=== PATIENT | female | born 1965 | race Caucasian/White ===

== ENCOUNTER 2017-06-03 14:47 | Emergency (ER) | payer OTHER ==
--- OUTSIDE RECORDS SUMMARY | 2017-06-03 14:56 | XMS REPORT ---
:1965 External Reference #:[id number] Author Organization [facility] Address [address] [address] Phone [phone] Care Team Providers Name Role Phone Anjum Miller III, MD Primary Care Physician Unavailable Payers Type Date Identification Numbers Payment Provider Subscriber Commercial Expires: Policy Number: [id number] [employer] Dirk Burns 2010 Group Number: [id number] [address] PayID: [id number] [place] [address] Commercial Effective: 2010 Policy Number: [id number] [employer] Dirk Burns PayID: [id number] [address] [place] [address] Medigap Part B Effective: Policy Number: [employer] Dirk Burns 2010 [id number] Expires: 2010 Group Number: [id number] [address] PayID: [id number] [place] [address] Problems Date Description Provider Status Onset: 08/23/2011 Pure hypercholesterolemia Anjum Miller M.D. Active Onset: 08/23/2011 Allergic rhinitis Anjum Miller M.D. Active Onset: 07/02/2016 Gastroesophageal reflux disease Anjum Miller M.D. 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 Multivitamins Active Tablets 90tab 1 PO qd (on s occassion) Zyrtec Active 10mg 1 qd Tums Smoothies Active Chewtabs 750mg 1 chewtab prn Acetaminophen Active Capsules 500mg 100ca take 1 ps tablets three times daily as needed Ibuprofen Active Tablets 200mg as needed Proair HFA Active Aerosol 108(90Bas 2 puffs by e) mouth every mcg/Act 4 hours as needed Dymista Active Suspension 137-50mcg 69gm 1 spray Anjum EUmesh /0000 /Act farrah Martines M.D. daily Famotidine Active Tablets 10mg take one tablet by mouthonce or twice a day Guaifenesin Active Tablets 400mg Augmentin 06/07 Hx Tablets 875-125mg 1 tablet by mouth q12 - hours for 06/26 10 days Ibuprofen 01/03 Hx Capsules 200mg prn Anjum Lucio /2010 Javon Miller M.D. 12/30 PT Under Eval 07/04 Hx Please put Anjum Lucio For A Back her Angela Problem - дмитрий Cedeño 04/25 on pending resolution of this issue. Cyclobenzaprine 04/28 Hx Tablets 10mg 30tab 1 po tid Anjum Lucio s prJavon Love M.D. 07/04 Physical Therapy 11/22 Hx 20uni pt Anjum Lucio /2008 ts evaluation Alva Miller 04/25 treatment for low back pain Physical Therapy 11/22 Hx 20uni pt 724.2 Anjum E. ts evaluation Alva Miller 04/25 treatment for low back pain Claritin 09/09 Hx Capsules 10mg 30cap 1 tablet Anjum Lucio s daily prJavon Love M.D. 07/04 Calcium 02/11 Hx Tablets 600mg 90tab 1 PO qd Anjum Lucio Javon Ocampo M.D. 06/22 Ibuprofen Hx Tablets 200mg 1 PO prn Jenn, / MD Taj - 06/22 Singulair Hx Tablets 10mg 90tab 1 PO qd Jenn, minerva Vang MD - 02/11 Maalox Hx Chewtabs 600mg 240un 1 tab po q Unknown /0000 its 6h - 08/22 Nystatin/Triamci Hx Cream [id number]. Jump, nolone /0000 1Unit/GM- Emma, - % CERT OCCUPATIONAL THERAPY ASST 06/[address] 40mg 90cap 1 po qd Anjum E. / Javon Ocampo M.D. 12/[address] 20mg 90cap 1 po bid Unknown /0000 s - 11/14 Nasonex Hx Suspension 50mcg/Act 2 sprays to Unknown /0000 each - nostril 05/30 twice daily /2016 Jublia Hx Solution 10% topical Unknown /0000 every day x - 48 wks 11/14 Zithromax Z-Alden Hx Tablets 250mg 18tab two by Unknown /0000 s mouth - initially 05/30 then one by mouth daily Immunizations CPT Code Status Date Vaccine Lot # [id number] Given 03/11/2017 Influenza Virus Vaccine, Quadrivalent, Split, [id number] Preservative Free 84164 Given 03/28/2016 Influenza Virus Vaccine, Quadrivalent, Split [id number] [place] [address] Given 12/14/2014 Influenza Virus Vaccine, Quadrivalent, Split, [id number] Preservative Free 83586 Given 01/28/2014 Flu Vaccine Split Virus Preservative Free For [id number] Indiv 3Yr Older 34233 Given 12/30/2012 Flu Vaccine Split Virus Preservative Free For [id number] Indiv 3Yr Older [id number] Given 11/27/2011 Fluzone Vaccine 28097 Given 01/01/2011 Influenza Virus 3Yrs & Over [id number] 95219 Given 01/13/2010 Influenza Virus 3Yrs & Over [id number] 63733 Given 01/16/2008 Tdap - Tetanus/Diptheria/Acellular Pertussis 86939 Given 01/16/2008 Influenza Virus 3Yrs & Over 20741 Given 02/11/2007 Influenza Virus 3Yrs & Over 67602 Given 02/11/2007 Influenza Virus 3Yrs & Over [id number] Vital Signs Date Vital Result Comment 05/27/2017 Weight 161.00 lb Heart Rate 74 /min BP Systolic Sitting 122 mmHg BP Diastolic Sitting 74 mmHg Body Temperature 97.7 F O2 % BldC Oximetry 97 % 04/19/2017 Height 66 inches 5'6" Weight 158.00 lb Heart Rate 60 /min BP Systolic 122 mmHg BP Diastolic 72 mmHg Respiratory Rate 16 /min Body Temperature 97.7 F BMI (Body Mass Index) 25.5 kg/m2 07/06/2016 Height 66 inches 5'6" Weight 155.00 lb Heart Rate 78 /min BP Systolic 118 mmHg BP Diastolic 82 mmHg Respiratory Rate 16 /min Body Temperature 98.3 F BMI (Body Mass Index) 25.0 kg/m2 07/02/2016 Height 66 inches 5'6" Weight 155.25 lb Heart Rate 71 /min BP Systolic 120 mmHg BP Diastolic 70 mmHg Body Temperature 98.0 F O2 % BldC Oximetry 98 % BMI (Body Mass Index) 25.1 kg/m2 05/30/2016 Weight 156.00 lb Heart Rate 74 /min BP Systolic Sitting 122 mmHg BP Diastolic Sitting 84 mmHg Respiratory Rate 15 /min O2 % BldC Oximetry 98 % 05/23/2016 Weight 156.25 lb Heart Rate 86 /min BP Systolic 128 mmHg BP Diastolic 80 mmHg Body Temperature 98.8 F O2 % BldC Oximetry 98 % 11/15/2015 Weight 152.00 lb Heart Rate 78 /min BP Systolic Sitting 120 mmHg BP Diastolic Sitting 72 mmHg Body Temperature 98.0 F O2 % BldC Oximetry 98 % 06/27/2015 Height 66 inches 5'6" Weight 155.00 lb Heart Rate 81 /min BP Systolic Sitting 112 mmHg BP Diastolic Sitting 78 mmHg Body Temperature 97.6 F O2 % BldC Oximetry 98 % BMI (Body Mass Index) 25.0 kg/m2 06/09/2015 Weight 154.00 lb Heart Rate 77 /min BP Systolic Sitting 122 mmHg BP Diastolic Sitting 86 mmHg Body Temperature 98.2 F O2 % BldC Oximetry 98 % 07/05/2014 Height 66 inches 5'6" Weight 146.00 lb Heart Rate 74 /min BP Systolic Sitting 118 mmHg BP Diastolic Sitting 70 mmHg Body Temperature 98.8 F O2 % BldC Oximetry 98 % BMI (Body Mass Index) 23.6 kg/m2 04/08/2014 Height 66 inches 5'6" Weight 151.25 lb Heart Rate 92 /min BP Systolic Sitting 122 mmHg BP Diastolic Sitting 78 mmHg Body Temperature 98.3 F O2 % BldC Oximetry 98 % BMI (Body Mass Index) 24.4 kg/m2 12/30/2012 Height 66 inches 5'6" Weight 153.00 lb Heart Rate 88 /min BP Systolic Sitting 122 mmHg BP Diastolic Sitting 72 mmHg BMI (Body Mass Index) 24.7 kg/m2 08/23/2011 Height 65.75 inches 5'5.75" Weight 142.75 lb Heart Rate 76 /min BP Systolic Sitting 102 mmHg BP Diastolic Sitting 66 mmHg BMI (Body Mass Index) 23.2 kg/m2 06/04/2011 Height 65.75 inches 5'5.75" Weight 142.00 lb Heart Rate 68 /min BP Systolic Sitting 120 mmHg BP Diastolic Sitting 72 mmHg BMI (Body Mass Index) 23.1 kg/m2 01/03/2011 Height 65.75 inches 5'5.75" Weight 144.75 lb Heart Rate 68 /min BP Systolic Sitting 124 mmHg BP Diastolic Sitting 68 mmHg BMI (Body Mass Index) 23.5 kg/m2 06/22/2010 Height 65.5 inches 5'5.50" Weight 148.00 lb Heart Rate 86 /min BP Systolic Sitting 130 mmHg BP Diastolic Sitting 72 mmHg BMI (Body Mass Index) 24.3 kg/m2 05/16/2010 BP Systolic 112 mmHg BP Diastolic 70 mmHg 07/04/2009 Weight 142.00 lb Heart Rate 78 /min BP Systolic Sitting 120 mmHg BP Diastolic Sitting 78 mmHg 04/28/2009 Heart Rate 76 /min BP Systolic Sitting 126 mmHg BP Diastolic Sitting 70 mmHg 11/22/2008 Weight 139.00 lb Heart Rate 72 /min BP Systolic Sitting 124 mmHg BP Diastolic Sitting 74 mmHg 09/09/2008 Height 65.5 inches 5'5.50" Weight 139.00 lb Heart Rate 80 /min BP Systolic Sitting 120 mmHg BP Diastolic Sitting 68 mmHg BMI (Body Mass Index) 22.8 kg/m2 01/16/2008 Height 66 inches 5'6" Weight 139.00 lb BP Systolic Sitting 120 mmHg BP Diastolic Sitting 80 mmHg BMI (Body Mass Index) 22.4 kg/m2 02/11/2007 Height 66 inches 5'6" Weight 134.00 lb Heart Rate 60 /min BP Systolic Sitting 104 mmHg BP Diastolic Sitting 66 mmHg BMI (Body Mass Index) 21.6 kg/m2 Results Test Date Test Result H/L Range Note CBC Auto Diff 06/21/2016 White Blood Count 7.8 10^3/uL 3.5-10.8 Red Blood Count 5.19 10^6/uL 4.0-5.4 Hemoglobin 14.4 g/dL 12.0-16.0 Hematocrit 43 % 35-47 Mean Corpuscular Volume 83 fL 80-97 Mean Corpuscular Hemoglobin 28 pg 27-31 Mean Corpuscular HGB Conc 34 g/dL 31-36 Red Cell Distribution Width 14 % 10.5-15 Platelet Count 241 10^3/uL 150-450 Mean Platelet Volume 9 um3 7.4-10.4 Abs Neutrophils 4.1 10^3/uL 1.5-7.7 Abs Lymphocytes 2.5 10^3/uL 1.0-4.8 Abs Monocytes 0.8 10^3/uL 0-0.8 Abs Eosinophils 0.4 10^3/uL 0-0.6 Abs Basophils 0.1 10^3/uL 0-0.2 Abs Nucleated RBC 0.01 10^3/uL Granulocyte % 52.2 % 38-83 Lymphocyte % 31.7 % 25-47 Monocyte % 10.6 % High 1-9 Eosinophil % 4.6 % 0-6 Basophil % 0.9 % 0-2 Nucleated Red Blood Cells % 0.1 Lipid Profile (Trig/Chol/HDL) 06/21/2016 Triglycerides 89 mg/dL 1 Cholesterol 241 mg/dL 2 HDL Cholesterol 57.7 mg/dL 3 LDL Cholesterol 166 mg/dL 4 Laboratory test finding 06/21/2016 Glucose 89 mg/dL 70-100 5 Laboratory test finding 04/24/2016 Surgical Pathology SEE RESULT BELOW 6, 7 Lipid Profile 04/01/2014 Triglycerides 121 mg/dL 8, 9 (Trig/Chol/HDL) Cholesterol 214 mg/dL 8, 10 HDL Cholesterol 56.3 mg/dL 8, 11 LDL Cholesterol 134 mg/dL 8, 12 Laboratory test finding 04/01/2014 Glucose 94 mg/dL 70-100 8, 13 Lipid Profile (Trig/Chol/HDL) 12/23/2012 Triglycerides 131 mg/dL 40-200 Cholesterol 213 mg/dL High Less than 200 HDL Cholesterol 49 mg/dL 40-60 14 Cholesterol/HDL Ratio 4.4 Average 1-4.44 LDL Cholesterol 137.8 High Less Than 100 15 Laboratory test finding 12/23/2012 Glucose 83 mg/dL 70-100 16 Human Papilloma Virus 12/05/2012 Human Papillomavirus See Comment 17 Source Human Papillomavirus High Risk Negative Negative 18 Surgical Pathology 08/02/2011 Surgical Pathology <SEE 19 NOTE> Clotest 08/02/2011 M <SEE 20 NOTE> Lipid Profile 06/19/2011 Triglyceride 78 mg/dL 40-200 (Trig/Chol/HDL) Cholesterol 201 mg/dL High Less Than 200 21 High Density Lipoprotein 52 mg/dL 40-60 22 Cholesterol/HDL Ratio 3.87 AVERAGE 1-4.44 Low Density Lipoprotein 133 mg/dL High Less Than 100 23 Laboratory test finding 06/19/2011 Glucose 87 mg/dL 70-100 CBC Auto Diff 06/19/2011 White Blood Count 6.6 CUMM 4.8-10.8 Red Cell Count 4.54 CUMM 4.2-5.4 Hemoglobin 13.2 g/dL 12.0-16.0 Hematocrit 39 % 35-47 Mean Corpuscular Volume 85 um3 79-97 Mean Corpuscular Hemoglob 29 pg 27-31 Mean Corpuscular HGB Cone 34 g/dL 32-36 Redcell Distribution WDTH 12 % 10.5-15 Platelet Count 218 CUMM 150-450 Mean Platelet Volume 9.4 um3 7.4-10.4 Gran % 51.2 % 38-83 Lymph % 33.5 % 25-47 Mononuclear % 9.1 % High 1-9 Eosinophil % 5.7 % 0-6 Basophil % 0.5 % 0-2 Abs Lymphs 2.2 1.0-4.8 Abs Mononuclear 0.6 0-0.8 Absolute Neutrophil Count 3.4 1.5-7.7 Abs Eosinophils 0.4 0-0.6 Abs Basophils 0 0-0.2 Comp Metabolic Panel 06/19/2011 Sodium 137 mmol/L 135-145 Potassium 4.3 mmol/L 3.5-5.0 Chloride 105 mmol/L 101-111 Co2 (Carbon Dioxide) 27.0 mmol/L 22-32 Anion Gap 5.0 mmol/L 2-11 24 BUN 15 mg/dL 6-24 Creatinine 0.9 mg/dL 0.50-1.40 One Over Creatinine 1.11 BUN/Creatinine Ratio 16.7 8-20 Calcium 9.5 mg/dL 8.1-9.9 Total Protein 7.1 GM/DL 6.2-8.1 Albumin 4.4 GM/DL 3.6-5.4 Globulin 2.7 GM/DL 2-4 Albumin/Globulin Ratio 1.6 1-3 Bilirubin Total 0.8 mg/dL 0.4-1.5 25 Alkaline Phosphatase 39 U/L 30-110 Alt (SGPT) 15 U/L 14-54 Ast (Sgot) 19 U/L 12-42 eGFR Non- 67.4 > 60 eGFR 86.7 > 60 26 Laboratory test finding 06/19/2011 Amylase 71 U/L 20-120 27 Lipase 33 U/L 22-51 Urinalysis W/Microscopic 06/19/2011 Ua Color YELLOW Yellow Appearance-Urine CLEAR Clear Specific [place]-Ur 1.010 1.010-1.030 Esterase-Urine NEGATIVE Negative Nitrite NEGATIVE Negative Zmstodlrmgaj-Ix-MKR NEGATIVE Negative Protein-Urine NEGATIVE Negative PH-Urine 5.5 5-9 Blood-Urine NEGATIVE Negative Ketones-Urine NEGATIVE Negative Bilirubin-Ur NEGATIVE Negative Glucose-Urine NEGATIVE Negative RBC-Urine NONE SEEN 0-2 Epith Cells-Ur RARE None Laboratory test finding 05/16/2010 Glucose 90 mg/dL 70-100 Lipid Profile (Trig/Chol/HDL) 05/16/2010 Triglyceride 92 mg/dL 40-200 Cholesterol 227 mg/dL High Less Than 200 28 High Density Lipoprotein 57 mg/dL 40-60 29 Low Density Lipoprotein 152 mg/dL High Less Than 100 30 Cholesterol/HDL Ratio 3.98 AVERAGE 1-4.44 Laboratory test finding 08/31/2008 TSH 1.74 MIU/ML 0.34-5.60 Lipid Profile (Trig/Chol/HDL) 08/31/2008 Triglyceride 82 mg/dL 40-200 Cholesterol 177 mg/dL Less Than 200 31 High Density Lipoprotein 49 mg/dL 40-60 32 Cholesterol/HDL Ratio 3.61 AVERAGE 1-4.44 Low Density Lipoprotein 112 mg/dL High Less Than 100 33 Comp Metabolic Panel 08/31/2008 Sodium 137 mmol/L 135-145 Potassium 4.7 mmol/L 3.5-5.0 Chloride 106 mmol/L 101-111 Co2 (Carbon Dioxide) 27.0 mmol/L 22-32 Anion Gap 4.0 mmol/L 2-11 34 Glucose 94 mg/dL 70-100 35 BUN 17 mg/dL 6-24 Creatinine 0.84 mg/dL 0.50-1.40 One Over Creatinine 1.10 BUN/Creatinine Ratio 20.2 High 8-20 Calcium 9.5 mg/dL 8.1-9.9 36 Total Protein 7.6 GM/DL 6.2-8.1 Albumin 4.6 GM/DL 3.6-5.4 Globulin 3.0 GM/DL 2-4 Albumin/Globulin Ratio 1.5 1-3 Bilirubin Total 0.8 mg/dL 0.4-1.5 37 Alkaline Phosphatase 47 U/L 30-110 Alt (SGPT) 18 U/L 14-54 Ast (Sgot) 24 U/L 12-42 CBC With Electronic Diff 08/31/2008 White Blood Count 6.4 CUMM 4.8-10.8 Red Cell Count 4.39 CUMM 4.2-5.4 Hemoglobin 13.0 g/dL 12.0-16.0 Hematocrit 36 % 35-47 Mean Corpuscular Volume 83 um3 79-97 Mean Corpuscular Hemoglob 30 pg 27-31 Mean Corpuscular HGB Cone 36 g/dL 32-36 Redcell Distribution WDTH 13 % 10.5-15 Platelet Count 237 CUMM 150-450 Mean Platelet Volume 8.3 um3 7.4-10.4 Gran % 49.5 % 38-83 Lymph % 34.4 % 25-47 Mononuclear % 7.5 % 1-9 Eosinophil % 7.6 % High 0-6 Basophil % 1.0 % 0-2 Abs Lymphs 2.2 1.0-4.8 Abs Mononuclear 0.5 0-0.8 Absolute Neutrophil Count 3.2 1.5-7.7 Abs Eosinophils 0.5 0-0.6 Abs Basophils 0.1 0-0.2 1 Desirable <150 Borderline high 150-199 High 200-499 Very High >500 2 Desirable <200 Borderline high 200-239 High >239 3 Low <40 Desirable: 40-60 High: >60 4 Desirable: <100 mg/dL Near Optimal: 100-129 mg/dL Borderline High: 130-159 mg/dL High: 160-189 mg/dL Very High: >189 mg/dL 5 FASTING 6 [id number] SEE RESULT BELOW Name: KAVYA BURNS : [address]: Tanner Ware MD Acct: [id number] Unit: [id number] AGE: 50 Location: ENDOC Re04/24/16 SEX: F Status: DEP REF SPEC: [id number] JULITA: 04/24/16-[address]: Tanner Ware MD REQ: [id number] RECD: 04/24/16113 STATUS: CHERELLE ROGERS DR: Anjum Miller III, MD _ ORDERED: LEVEL IV COMMENTS: [id number] FINAL DIAGNOSIS Colon, at 20 cm, biopsy: -- Hyperplastic polyp. CLINICAL HISTORY No history given POST-OPERATIVE DIAGNOSIS Colonoscopy to terminal ileum - polyp at 20 cm biopsied; 10 years GROSS DESCRIPTION The specimen is received in formalin labeled, Biopsy Polyp Colon at 20 cm, and consists of a 0.6 x 0.2 x 0.1 cm edwards-pink irregular soft tissue fragment, which is submitted entirely in one cassette. Signed (signature on file) Sirisha Sanders MD 04/10 1154 END OF REPORT * ML=Testing performed at Main Lab DEPARTMENT OF PATHOLOGY, [address] [place] [address] Nikhil Salas M.D. Director [facility] # [id number] FASTING 10 HOUR 9 Desirable <150 Borderline high 150-199 High 200-499 Very High >500 10 Desirable <200 Borderline high 200-239 High >239 11 Low <40 Desirable: 40-60 High: >60 12 Desirable <100 Near Optimal 100-129 Borderline high 130-159 High 160-189 Very High >189 13 FASTING 10 HOUR 14 HDL Interpretation: Undesirable: High Risk: Less than 40 mg/dL Desirable: Low Risk: Greater than 60 mg/dL 15 LDL Interpretation: Low Risk Optimal Level: LDL Less than 100 mg/dL Near or Above Optimal: LDL 100-129 mg/dL Borderline High Risk: LDL 130-159 mg/dL High Risk: LDL 160-189 mg/dL Very High Risk: LDL Greater than 189 mg/dL 16 FASTING 10 HOUR 17 RESULT: Ectocervical/Endocervical 18 For types 16, 18, 31, 33, 35, 39, 45, 51, 52, 56, 58, 59 and 68. Test Performed by: [facility] - [address] [address] Digital Pre Press Operator: Rufino Hunter III, M.D. 19 ---- RUN DATE: 08/03/11 [facility] LIVE PAGE 1 RUN TIME: 1307 Specimen Inquiry RUN USER: INTERFACE -- Name: KAVYA BURNS Karl Status: REG REF Re08/02/11 Age/Sex: 45/F Unit#: [id number] Location: [facility] : 63 -- Specimen: [id number] SOUT Spec Date:08/02/11- Tunde Dr: Tanner martin MD Spec Type: SURGICAL P Received:08/02/11-1023 Copies to: Anjum Miller III, MD SPECIMEN 1) BIOPSY DUODENUM 2) BIOPSY ESOPHAGUS HISTORY POST-OP DIAGNOSIS: Normal exam. Biopsies. CLINICAL INFORMATION: Gastroesophageal reflux disease. GROSS DESCRIPTION 1) The specimen is received in formalin labelled Kavya Burns, Biopsy Duodenum, and consists of three fragments of yellow tissue each measuring 0.5 x 0.2 x 0.2 cm. Submitted entirely, one cassette labelled 1. 2) The specimen is received in formalin labelled Kavya Naveed Burns, Biopsy Esophagus, and consists of two fragments of white tissue each measuring 0.3 x 0.2 x 0.1 cm. Submitted entirely, one cassette labelled 2. DIAGNOSIS 1) Duodenum, biopsy: Small bowel mucosa with preserved villous architecture and no significant pathologic changes. 2) Esophagus, biopsy: Squamous mucosa with evidence of reflux disease. Signed Electronically by: JACK KO 08/03/11 1307 -- -- DEPARTMENT OF PATHOLOGY, [address] [place] [address] [facility] Permit #[id number] Nikhil Salas M.D. Director Jack Ko M.D. Restaurant District Manager tiffanie -- 20 RUN DATE: 08/03/11 [facility] NMI LIVE PAGE 1 RUN TIME: 807 Specimen Inquiry RUN USER: INTERFACE Name: KAVYA BURNS Status: REG REF Re08/02/11 Age/Sex: 45/F Unit#: [id number] Location: [facility] : 63 SPEC #: [id number] JULITA: 08/02/11 STATUS: COMP REQ #: [id number] RECD: 08/02/11-[address]: Tanner Ware MD SOURCE: CLOTEST ENTR: 08/02/[address]: Angela PEREZ MD, Anjum [facility]: ORDERED: CLOTEST ACT WKST: MISC 08/03/11 #1 Procedure Result Verified Site > CLOTEST Final ML CLOTEST NEGATIVE - [facility] Permit #[id number] [address] [place] [address] DEPARTMENT OF PATHOLOGY, [address] [place] [address] [facility] Permit #[id number] Gala Umaña M.D. Restaurant Team Member 21 CHOLESTEROL INTERPRETATION: Desirable: Less than 200 MG/DL Borderline-High Risk: 200-239 MG/DL High-Risk: 240 MG/DL and over 22 HDL INTERPRETATION: Undesirable: High Risk: Less than 40 MG/DL Desirable: Low Risk: Greater than 60 MG/DL 23 LDL INTERPRETATION: Low Risk Optimal Level: LDL Less than 100 MG/DL Near or Above Optimal: LDL 100-129 MG/DL Borderline High Risk: LDL 130-159 MG/DL High Risk: LDL 160-189 MG/DL Very High Risk: LDL Greater than 189 MG/DL 24 Anion gap measurement may be of limited value in the presence of any alkalosis, especially in a combined acid base disorder. . 25 A metabolite of Naproxen, O-desmethylnaproxen, has been shown to interfere with the Jendrassik-Kay method for measuring total bilirubin. Samples from patients who have taken Naproxen have shown spurious elevation in total bilirubin levels. 26 Because ethnic data is not always readily available, this report includes an eGFR for both -Americans and non- Americans. The National Kidney Disease Education Program (NKDEP) does not endorse the use of the MDRD equation for patients that are not between the ages of 18 and 70, are , have extremes of body size, muscle mass, or nutritional status, or are non- or non-. According to the National Kidney Foundation, irrespective of diagnosis, the stage of the disease is based on the level of kidney function: Stage Description GFR(mL/min/1.73 m(2)) 1 Kidney damage with normal or decreased GFR 90 2 Kidney damage with mild decrease in GFR 60-89 3 Moderate decrease in GFR 30-59 4 Severe decrease in GFR 15-29 5 Kidney failure <15 (or dialysis) 27 PLEASE NOTE NEW REFERENCE RANGE. 28 CHOLESTEROL INTERPRETATION: Desirable: Less than 200 MG/DL Borderline-High Risk: 200-239 MG/DL High-Risk: 240 MG/DL and over 29 HDL INTERPRETATION: Undesirable: High Risk: Less than 40 MG/DL Desirable: Low Risk: Greater than 60 MG/DL 30 LDL INTERPRETATION: Low Risk Optimal Level: LDL Less than 100 MG/DL Near or Above Optimal: LDL 100-129 MG/DL Borderline High Risk: LDL 130-159 MG/DL High Risk: LDL 160-189 MG/DL Very High Risk: LDL Greater than 189 MG/DL 31 CHOLESTEROL INTERPRETATION: Desirable: Less than 200 MG/DL Borderline-High Risk: 200-239 MG/DL High-Risk: 240 MG/DL and over 32 HDL INTERPRETATION: Undesirable: High Risk: Less than 40 MG/DL Desirable: Low Risk: Greater than 60 MG/DL 33 LDL INTERPRETATION: Low Risk Optimal Level: LDL Less than 100 MG/DL Near or Above Optimal: LDL 100-129 MG/DL Borderline High Risk: LDL 130-159 MG/DL High Risk: LDL 160-189 MG/DL Very High Risk: LDL Greater than 189 MG/DL 34 Anion gap measurement may be of limited value in the presence of any alkalosis, especially in a combined acid base disorder. . 35 Note change in reference range as of 11/13/07. The change was based on recommendations from the [employer]. 36 Please note change in reference range effective 07 . 37 A metabolite of Naproxen, O-desmethylnaproxen, has been shown to interfere with the Jendrassik-[place] method for measuring total bilirubin. Samples from patients who have taken Naproxen have shown spurious elevation in total bilirubin levels. Procedures Date CPT Code Description Status 07/02/2016 58253 Admin & Interp Of Health Risk Assessment w/ Patient Completed 06/21/2016 Mammogram Completed 04/24/2016 Colonoscopy Completed 05/12/2015 Mammogram Completed 01/28/2014 Mammogram Completed 01/20/2013 Mammogram Completed 12/14/2011 Mammogram Completed 09/07/2010 Mammogram Completed 01/13/2010 41422 Admin Of Inj Completed 01/25/2009 Mammogram Completed 02/21/2006 Colonoscopy Completed Encounters Type Date Location Provider CPT E/M Dx Office Visit 04/19/2017 [facility], [address]7570 M79.2 8:45a Olena Cedeño Office Visit 07/06/2016 [facility], 20463 M79.2 9:00a Olena Cedeño Office Visit 07/02/2016 [facility] Internal Medicine Anjum Miller, 78508 Z00.00 1:20p - Fernando Cedeño E78.00 K21.9 J30.9 M79.652 Office Visit 05/30/2016 11:20a [facility] Internal Medicine Anjum Miller, 30009 M79.652 - Fernando Cedeño Office Visit 05/23/2016 9:00a [facility] Internal Medicine Anjum Miller, 52849 L98.9 - Fernando Cedeño Office Visit 11/15/2015 2:20p [facility] Internal Medicine Anjum Miller, 43086 M79.671 - Fernando Cedeño Office Visit 06/27/2015 1:00p [facility] Internal Medicine Anjum Miller, 31927 Z00.00 - Aleyda Cedeño E78.0 K21.9 J30.9 Z12.11 Office Visit 06/09/2015 9:40a [facility] Internal Medicine Anjum Miller, 92759 H81.13 - Aleyda Cedeño Office Visit 07/05/2014 2:00p [facility] Internal Medicine Anjum Miller, 09409 009.3 - Aleyda Cedeño Office Visit 04/08/2014 3:00p [facility] Internal Medicine Anjum Miller, 13728 V70.0 - Aleyda Cedeño 272.0 530.81 477.9 709.9 Office Visit 12/30/2012 2:40p [facility] Internal Medicine Anjum Miller, 88695 V70.0 - Aleyda Cedeño v04.81 272.0 530.81 477.9 709.9 Office Visit 08/23/2011 10:00a [facility] Internal Medicine Anjum Miller, 75700 V70.0 - Aleyda Cedeño 789.06 272.0 477.9 Office Visit 06/04/2011 4:00p [facility] Internal Medicine Anjum Miller, 05459 789.06 - Aleyda Cedeño Office Visit 01/03/2011 2:20p DO Not Use [employer] Anjum Miller, [address] 786.2 Karlee Cedeño Office Visit 06/22/2010 10:00a DO Not Use [employer] [facility], [address] [facility] 724.2 477.9 272.0 Office Visit 07/04/2009 11:20a DO Not Use [employer] [facility], [address] 724.2 [facility].D. Office Visit 04/28/2009 1:40p DO Not Use [employer] [facility], [address] 719.45 [facility].DUmesh Office Visit 11/22/2008 11:30a [facility], [address] 724.2 [facility].D. Office Visit 09/09/2008 1:30p [facility], [address]463 V70.0 [facility].DUmesh Office Visit 01/16/2008 11:00a [facility], [address]89 923.11 [facility].DUmesh V04.81 V06.1 Office Visit 02/11/2007 11:15a [facility], [address] 465.9 [facility].DUmesh V04.81 Plan of Care No Information Available
[2017-06-03 15:04] VITALS: BP 143/89
--- NOTE | 2017-06-03 15:12 | UC ---
Respiratory Complaint HPI - HPI Summary HPI Summary: Pt presents with productive cough and SOB for the last week. She tells me that she saw her PCP 1 week ago and was told to restart her allergy medication and given an albuterol inhaler. 4 days ago she called her PCP because she was not improved - a CXR was ordered and is normal. She tried to get in to see her deckhand, but they could not see her today, so she came to . Has been using albuterol inhaler and her flonase nasal spray with no relief. Her cough is producing yellow/white chunks of sputum. Says that she "feels off". No hx of asthma. No recent travel or hx of clotting dz or cancer other than a skin cancer that was removed 4 years ago. Denies fever, chills, sore throat, sinus symptoms, chest pain, or abdominal pain. - History of Current Complaint Hx Obtained From: Patient Hx Last Menstrual Period: 04/03/2017 ?: No Onset/Duration: Gradual Onset Timing: Constant Severity Initially: Mild Severity Currently: Mild Pain Intensity: 2 Pain Scale Used: 0-10 Numeric Character: Cough: Productive <Estuardo Anrdews - Last Filed: 06/03/17 17:33> <Vesna Barkley - Last Filed: 06/03/17 18:01> - History of Current Complaint Chief Complaint: UCGeneralIllness Stated Complaint: CONGESTED Time Seen by Provider: 06/03/17 15:11 - Allergies/Home Medications Allergies/Adverse Reactions: Allergies Allergy/AdvReac Type Severity Reaction Status Date / Time Adhesive Tape Allergy Rash Verified 06/04/16 11:24 Home Medications: Home Medications Guaifenesin/Dextromethorphan [Guaifenesin Dm 400-20 mg Tab] 06/03/17 [History] PMH/Surg Hx/FS Hx/Imm Hx Previously Healthy: Yes GI/ History: Gastroesophageal Reflux - Surgical History Surgical History: Yes Surgery Procedure, Year, and Place: C SECTION-1994. ECTOPIC -1999. SKIN CARCINOMA REMOVED LEFT SHOULDER 2013 - Social History Occupation: Employed Full-time Lives: With Family Alcohol Use: Rare Substance Use Type: None Smoking Status (MU): Never Smoked Tobacco <Estuardo Andrews - Last Filed: 06/03/17 17:33> Review of Systems Constitutional: Negative Skin: Negative Eyes: Negative ENT: Negative Respiratory: Shortness Of Breath, Cough Cardiovascular: Negative Gastrointestinal: Negative Musculoskeletal: Negative Neurological: Negative Psychological: Negative All Other Systems Reviewed And Are Negative: Yes <Estuardo Andrews - Last Filed: 06/03/17 17:33> Physical Exam - Summary Physical Exam Summary: GENERAL: NAD. WDWN. No pain distress. SKIN: No rashes, sores, ulcers, masses, lesions. HEENT: Head: AT/NC Eyes: Conjunctiva clear without inflammation or discharge. Ears: Hearing grossly normal. TMs intact, no bulging, erythema, or edema. Nose: Nasal mucosa pink and moist. NTTP maxillary and frontal sinus. Throat: Posterior oropharynx without exudates, erythema, or tonsillar enlargement. Uvula midline. NECK: Supple. Nontender. No lymphadenopathy. CHEST: Moderate wheezing throughout. Mild increased work of breathing - using her mouth to inhale/exhale. No r/r. No accessory muscle use. CV: RRR. Without m/r/g. Pulses intact. Brisk cap refill. NEURO: Alert. CN II-XII grossly intact. PSYCH: Age appropriate behavior. Triage Information Reviewed: Yes Vital Signs: Initial Vital Signs Temp 97.7 F 06/03/17 14:56 Pulse 76 06/03/17 14:56 Resp 20 06/03/17 14:56 BP 143/89 06/03/17 14:56 Pulse Ox 99 06/03/17 14:56 <Estuardo Andrews - Last Filed: 06/03/17 17:33> Vital Signs: Initial Vital Signs Temp 97.7 F 06/03/17 14:56 Pulse 76 06/03/17 14:56 Resp 20 06/03/17 14:56 BP 143/89 06/03/17 14:56 Pulse Ox 99 06/03/17 14:56 <Vesna Barkley - Last Filed: 06/03/17 18:01> Diagnostic Evaluation - Laboratory O2 Sat by Pulse Oximetry: 99 <Estuardo Andrews - Last Filed: 06/03/17 17:33> Respiratory Course/Dx - Course Course Of Treatment: Duoneb provided no improvement. EKG NSR with no ST changes as read by Dr. Barkley. CXR was negative on 05/31/17. I discussed with the patient that her symptoms could be related to asthma, bronchitis, cardiac abnormalities, or a PE and, given the length of her symptoms, increased work of breathing, and no benefit from albuterol or duoneb - she should undergo further evaluation in the ED. She was agreeable to this plan and said she would drive by private vehicle. - Differential Dx/Diagnosis Provider Diagnoses: Shortness of breath. Wheezing <Estuardo Andrews - Last Filed: 06/03/17 17:33> Discharge - Discharge Plan Discharge Disposition Comment: To [facility] ED by private vehicle <Estuardo Andrews - Last Filed: 06/03/17 17:33> - Discharge Plan Discharge Disposition Comment: [facility] by POV <Vesna Barkley - Last Filed: 06/03/17 18:01> - Discharge Plan Condition: Stable Disposition: OTHER Referrals: Anjum Miller MD [Primary Care Provider] - Additional Instructions: Please go to the [facility] ED for further evaluation of your shortness of breath. If your symptoms worsen - please side puller and dial 911. Attestation Statement User Type: Provider - I was available for consult. This patient was seen by the JOSUÉ. The patient was not presented to, seen by, or examined by me. Shyanne <Vesna Barkley - Last Filed: 06/03/17 18:01>
[2017-06-03] MEDS ORDERED: Albuterol/Ipratropium NEB.SOL* Albuterol 2.5 MG/Ipratropium 0.5 MG 3 ML INH ONE (15:18)
== END 2017-06-03 16:42 ==
LOC: UCEAST 14:47
DX: R06.02 Shortness of breath (principal); R06.2 Wheezing; R05 Cough; K21.9 Gastro-esophageal reflux disease without esophagitis; Z91.048 Other nonmedicinal substance allergy status
CPT/HCPCS: 93005; 99212; A9270-GY; G0463

== ENCOUNTER 2017-06-03 17:06 | Emergency (ER) | payer OTHER ==
[2017-06-03 17:47] LABS: ABS Basophils 0.1 10^3/ul (0-0.2); ABS Eosinophils 0.5 10^3/ul (0-0.6); ABS Lymphocytes 2.9 10^3/ul (1.0-4.8); ABS Monocytes 0.9 10^3/ul (0-0.8); ABS Neutrophils 6.8 10^3/ul (1.5-7.7); ABS Nucleated RBC 0 10^3/ul; Eosinophil % 4.2 % (0-6); Hematocrit 42 % (35-47); Hemoglobin 13.9 g/dl (12.0-16.0); Lymphocyte % 25.7 % (25-47); Mean Corpuscular HGB Conc 34 g/dl (31-36); Mean Corpuscular Hemoglobin 28 pg (27-31); Mean Corpuscular Volume 83 fL (80-97); Mean Platelet Volume 8 um3 (7.4-10.4); Nucleated Red Blood Cells % 0.1; Platelet Count 270 10^3/ul (150-450); Red Blood Count 5.01 10^6/ul (4.0-5.4); Red Cell Distribution Width 14 % (10.5-15); White Blood Count 11.2 10^3/ul (3.5-10.8)
[2017-06-03] MEDS ORDERED: Albuterol/Ipratropium NEB.SOL* Albuterol 2.5 MG/Ipratropium 0.5 MG 3 ML INH ONE (17:52)
[2017-06-03 18:04] LABS: EGFR Non-African American 62.5 (>60)
[2017-06-03] MEDS ORDERED: methylPREDNISolone 125 MG* 2 ML VIAL IV ONE (18:13)
--- NOTE | 2017-06-03 18:37 | RAD ---
INDICATION: Cough and shortness of breath. COMPARISON: Comparison is made with a prior study from May 31, 2017. TECHNIQUE: Dual-energy PA and lateral views of the chest were obtained. FINDINGS: The heart is within normal limits in size. Mediastinal and hilar contours appear within normal limits. The lungs are clear. No pleural effusion is present. IMPRESSION: NO EVIDENCE FOR ACTIVE CARDIOPULMONARY DISEASE.
--- NOTE | 2017-06-03 19:17 | ED ---
Respiratory - HPI Summary HPI Summary: 51F presents with cough for the past week. She states that she normally takes allergy medications but has been recently states she saw her primary told her to restart medication. She states on Saturday the cough was worse and she had increasing shortness of breath so she went to urgent care and had an x-ray, which is normal. She states shortness breath continues to persist. She states she feels like she has to cough sometimes but can't. She states her shortness of breath is better when she coughs. She has been using an inhaler with some relief. She states this feels similar to when she has been in dust. She admits to occasional sore throat. She admits to sinus congestion and postnasal drip. She denies any bowel pain nausea or vomiting. She denies any pain with urination. She has been using Flonase. She denies any pain or swelling.. She is not a smoker. She denies any family history of blood clots. She denies any fevers. She describes her chest pain as a chest tightness. - History of Current Complaint Chief Complaint: EDShortnessOfBreath Stated Complaint: SOB Time Seen by Provider: 06/03/17 17:25 Pain Intensity: 2 Sputum Amount: Small - Allergy/Home Medications Allergies/Adverse Reactions: Allergies Allergy/AdvReac Type Severity Reaction Status Date / Time Adhesive Tape Allergy Rash Verified 06/04/16 11:24 PMH/Surg Hx/FS Hx/Imm Hx Endocrine/Hematology History: Denies: Hx Diabetes Cardiovascular History: Denies: Hx Hypertension, Hx Pacemaker/ICD Respiratory History: Reports: Hx Seasonal Allergies Denies: Hx Chronic Obstructive Pulmonary Disease (COPD) History: Denies: Hx Renal Disease Sensory History: Denies: Hx Hearing Aid Psychiatric History: Denies: Hx Panic Disorder - Cancer History Cancer Type, 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 ECTOPIC -1999. SKIN CARCINOMA REMOVED LEFT SHOULDER 2013 Infectious Disease History: No Infectious Disease History: Denies: Traveled Outside the [place] in Last 30 Days - Family History Known Family History: Negative: Blood Disorder - Social History Alcohol Use: Occasionally Substance Use Type: Reports: None Smoking Status (MU): Never Smoked Tobacco Review of Systems Negative: Fever Positive: Chest Pain Positive: Shortness Of Breath, Cough All Other Systems Reviewed And Are Negative: Yes Physical Exam Triage Information Reviewed: Yes Vital Signs On Initial Exam: Initial Vitals Temp Pulse Resp BP Pulse Ox 97.4 F 76 18 161/78 99 06/03/17 17:13 06/03/17 17:13 06/03/17 17:13 06/03/17 17:13 06/03/17 17:13 Vital Signs Reviewed: Yes Appearance: Positive: Well-Appearing Skin: Positive: Warm, Dry Head/Face: Positive: Normal Head/Face Inspection Eyes: Positive: Normal, EOMI, ABRAN, Conjunctiva Clear ENT: Positive: Normal ENT inspection, Pharynx normal, TMs normal Respiratory/Lung Sounds: Positive: Breath Sounds Present, Wheezes Cardiovascular: Positive: Normal, RRR Abdomen Description: Positive: Nontender, Soft Bowel Sounds: Positive: Present Musculoskeletal: Positive: Normal Neurological: Positive: Normal Psychiatric: Positive: Normal Diagnostics - Vital Signs Vital Signs Temp Pulse Resp BP Pulse Ox 06/03/17 18:03 78 12 98 06/03/17 18:00 133/78 06/03/17 17:46 84 13 159/75 100 06/03/17 17:43 11 06/03/17 17:13 97.4 F 76 18 161/78 99 - Laboratory Lab Results: Lab Results 06/03/17 06/03/17 06/03/17 Range/Units 17:35 17:35 18:10 WBC 11.2 H (3.5-10.8) 10^3/ul RBC 5.01 (4.0-5.4) 10^6/ul Hgb 13.9 (12.0-16.0) g/dl Hct 42 (35-47) % MCV 83 (80-97) fL MCH 28 (27-31) pg MCHC 34 (31-36) g/dl RDW 14 (10.5-15) % Plt Count 270 (150-450) 10^3/ul MPV 8 (7.4-10.4) um3 Neut % (Auto) 60.9 (38-83) % Lymph % (Auto) 25.7 (25-47) % [facility] % (Auto) 8.2 H (0-7) % Eos % (Auto) 4.2 (0-6) % Baso % (Auto) 1.0 (0-2) % Absolute Neuts (auto) 6.8 (1.5-7.7) 10^3/ul Absolute Lymphs (auto) 2.9 (1.0-4.8) 10^3/ul Absolute Monos (auto) 0.9 H (0-0.8) 10^3/ul Absolute Eos (auto) 0.5 (0-0.6) 10^3/ul Absolute Basos (auto) 0.1 (0-0.2) 10^3/ul Absolute Nucleated RBC 0 10^3/ul Nucleated RBC % 0.1 D-Dimer, Quantitative < 200 (Less Than 230) ng/mL Sodium 138 (133-145) mmol/L Potassium 3.8 (3.5-5.0) mmol/L Chloride 103 (101-111) mmol/L Carbon Dioxide 27 (22-32) mmol/L Anion Gap 8 (2-11) mmol/L BUN 18 (6-24) mg/dL Creatinine 0.94 (0.51-0.95) mg/dL Est GFR ( Amer) 80.4 (>60) Est GFR (Non-Af Amer) 62.5 (>60) BUN/Creatinine Ratio 19.1 (8-20) Glucose 99 (70-100) mg/dL Calcium 10.3 (8.6-10.3) mg/dL Total Bilirubin 0.30 (0.2-1.0) mg/dL AST 22 (13-39) U/L ALT 15 (7-52) U/L Alkaline Phosphatase 64 (34-104) U/L Troponin I 0.00 (<0.04) ng/mL C-React Prot High Sens 0.82 mg/L Total Protein 8.1 (6.4-8.9) g/dL Albumin 4.8 (3.2-5.2) g/dL Globulin 3.3 (2-4) g/dL Albumin/Globulin Ratio 1.5 (1-3) Result Diagrams: 06/03/17 17:35 06/03/17 17:35 Lab Statement: Any lab studies that have been ordered have been reviewed, and results considered in the medical decision making process. - Radiology chest Xray Interpretation: No Acute Changes Radiology Interpretation Completed By: Radiologist - EKG No standard instances Cardiac Rate: NL EKG Rhythm: Sinus Rhythm ST Segment: Normal EKG Interpretation: normal sinus rhythmn Re-Evaluation - Re-Evaluation First Eval Re-Evaluation Time: 19:24 Change: Improved Comment: lungs CTA Disposition - Course Course Of Treatment: 51F presents with cough for the past week. She states that she normally takes allergy medications but has been recently states she saw her primary told her to restart medication. She states on Saturday the cough was worse and she had increasing shortness of breath so she went to urgent care and had an x-ray, which is normal. She states shortness breath continues to persist. She states she feels like she has to cough sometimes but can't. She states her shortness of breath is better when she coughs. She has been using an inhaler with some relief. She states this feels similar to when she has been in dust. She admits to occasional sore throat. She admits to sinus congestion and postnasal drip. She denies any bowel pain nausea or vomiting. She denies any pain with urination. She has been using Flonase. She denies any pain or swelling.. She is not a smoker. She denies any family history of blood clots. She denies any fevers. On exam lungs some wheezing present. Heart regular rate and rhythm. Abdomen soft nontender. Chest x-ray normal. EKG normal. Labs within normal limits except for white blood cell count of 11.2. d-dimer neg. troponin zero. Gave DuoNeb patient's lungs are clear to auscultation. will have continued steroid at home. Patient declined cough medication. We'll have follow-up with primary. Patient understands and agrees to plan. - Differential Dx - Cardiopulmonary Differential Diagnoses - Cardiopulmonary: Bronchitis, Lower Resp Infection, Pulmonary Embolism - Diagnoses Provider Diagnoses: Bronchitis Discharge - Discharge Plan Condition: Good Disposition: HOME Prescriptions: predniSONE TAB* [Deltasone TAB*] 50 mg PO DAILY #4 tab Patient Education Materials: Acute Bronchitis (ED) Referrals: Anjum Miller MD [Primary Care Provider] - Additional Instructions: Use inhaler one puff every 4 hours for cough as needed Take steroid once a day for 4 more days Use saline in the nose Use humidifier or place warm bowls of water around the room Cough can last up to 6 weeks Follow up with primary care physician in 7 days Return to ED if develop any new or worsening symptoms
[2017-06-03 19:41] VITALS: BP 120/58
== END 2017-06-03 19:40 | disposition home or self-care (01) ==
LOC: ED 17:06
DX: J40 Bronchitis, not specified as acute or chronic (principal)
CPT/HCPCS: 36415; 71046; 80053; 84484; 85025; 85379; 86141; 93005; 94640; 99283; A9270-GY; J2930